=== PATIENT | female | born 1950 | race Caucasian/White ===

== ENCOUNTER → 2017-08-24 | Outpatient (CLI) | payer OTHER ==
[~2017-08-24] MED LIST: ADULT LOW DOSE81 MG PO; ASPIR 8181 MG PO; ASPIR-TRIN325 MG PO; BENICAR PO; CIPRO500 MG PO; COZAAR100 MG PO; EFFIENT10 MG PO; FISH OIL 1,001000 M2 PO; FLUOXETINE HCL40 MG PO; GLUCOPHAGE500 MG PO; IRON325 PO; LIPITOR 20 MG T20 M1 PO; MOBIC15 MG PO; NORCO 5-325 TA1 EACH PO; PENICILLIN V P500 MG PO; PINDOLOL10 MG PO; POTASSIUM GLUCO90 MG; PROZAC20 MG PO; SYNTHROID50 MCG PO; VICODIN 5-5001 EACH PO; ZOCOR PO; ZOLOFT25 MG; ZPAK PO
== END ==
LOC: M.ULTRA 10:10
DX: I77.9 Disorder of arteries and arterioles, unspecified (principal); I10 Essential (primary) hypertension; E11.9 Type 2 diabetes mellitus without complications; E78.5 Hyperlipidemia, unspecified

== ENCOUNTER 2018-02-20 11:07 | Observation (INO) | payer OTHER ==
[~2018-02-20] VITALS: Ht 162.6 cm; Wt 83.9 kg
[~2018-02-20 11:07] MED LIST changes: -FISH OIL 1,001000 M2 PO; -PENICILLIN V P500 MG PO; -ZPAK PO
[2018-02-20 11:12] VITALS: BP 168/67
[2018-02-20] MEDS ORDERED: ZPAK PO (11:17)
[2018-02-20] MEDS ORDERED: PENICILLIN V P500 MG PO (11:17)
[2018-02-20 11:57] LABS: ABSOLUTE BASOPHILS 0.1 thou/uL (0.0-0.2); ABSOLUTE EOSINOPHILS 0.1 thou/uL (0.0-0.7); ABSOLUTE NEUTROPHILS 8.6 thou/uL (1.6-8.1); HEMATOCRIT 40.3 % (37.0-47.0); HEMOGLOBIN 13.2 gm/dL (12.0-15.0); LYMPHOCYTES 23.5 %; MCHC 32.7 g/dL (28.0-37.0); MCV 91.7 fL (80.0-100.0); MONOCYTES 7.7 %; MPV 9.5 fl. (7.2-11.1); NUCLEATED RBCS 0 /100WBC; PLATELET COUNT* 450 thou/uL (150-400); POLYS 66.8 %; RDW-CV 14.2 % (10.5-14.5); WBC 12.8 thou/uL (4.0-11.0)
[2018-02-20 12:04] LABS: URINE BILIRUBIN NEGATIVE (Negative); URINE BLOOD NEGATIVE (Negative); URINE CLARITY CLEAR; URINE COLOR YELLOW; URINE GLUCOSE-RANDOM NEGATIVE (Negative); URINE KETONES TRACE (Negative); URINE LEUKOCYTES-REFLEX NEGATIVE (Negative); URINE NITRITE-REFLEX NEGATIVE (Negative); URINE PROTEIN NEGATIVE (Negative); URINE SPECIFIC GRAVITY 1.025 (1.005-1.030); URINE UROBILINOGEN 0.2 E.U./dl (0.2-1.0)
[2018-02-20 12:06] LABS: ANION GAP 14 mmol/L (7-16); BUN 32 mg/dL (7-18); CALCIUM 8.5 mg/dL (8.5-10.1); CHLORIDE 98 mmol/L (98-107); CO2 21 mmol/L (21-32); CREATININE 1.5 mg/dL (0.6-1.3); GLUCOSE 226 mg/dL (70-99); SODIUM 133 mmol/L (136-145)
[2018-02-20 12:13] LABS: ALBUMIN 3.5 g/dL (3.4-5.0); ALKALINE PHOSPHATASE 77 U/L (46-116); MAGNESIUM 1.9 mg/dL (1.8-2.4); SGOT 18 U/L (15-37); SGPT 23 U/L (30-65); TOTAL BILIRUBIN 0.3 mg/dL (<0.1-1.0); TOTAL PROTEIN 7.6 g/dL (6.4-8.2); TROPONIN-I LEVEL <0.06 ng/mL (<0.06)
--- NOTE | 2018-02-20 13:26 | NUR ---
PT GIVEN REGULAR LUNCH TRAY PER REQUEST
[2018-02-20 14:17] VITALS: BP 136/84
[2018-02-20 14:30] VITALS: BP 187/82
[2018-02-20 16:56] LABS: CHOLESTEROL 174 mg/dL (<200); HDL CHOLESTEROL 54 mg/dL (>40); LDL CHOLESTEROL 83 mg/dL (<100); TC:HDL 3.2 Ratio (Not establshd); TRIGLYCERIDE 185 mg/dL (<150); VLDL 37 mg/dL (<40)
[2018-02-20 16:57] LABS: SERUM ASSESSMENT CLEAR
--- NOTE | 2018-02-20 18:50 | NUR ---
RECEIVED REPORT FROM CHACORTA GREEN IN ER. PT ARRIVED TO TELE FLOOR AROUND 1430, ASSUMED CARE. PT A&O X4. VSS. O2 SAT >90% ON RA. 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 ADMISSION HISTORY, ASSESSMENT AND EDUCATION COMPLETED CHARTED. PT ORIENTED TO ROOM BED AND CALL LIGHT, COMMUNICATES UNDERSTANDING. PT PASSED BEDSIDE SWALLOW. NIH O. DENIES DIZZINESS. DENIES PAIN OR DISCOMFORT. PT STATES SHE FEELS "FINE NOW". PT EATING AND DRINKING WITHOUT ISSUE. FAMILY VISITED THIS EVENING. PT TO HAVE MRI AND MRA TOMORROW. PT CURRENTLY RESTING IN BED WATCHING TV. FALL PRECAUTIONS IN PLACE. CALL LIGHT IS WITHIN REACH. HOURLY ROUNDING PERFORMED. WCTM FOR DURATION OF SHIFT.
[2018-02-20 19:45] VITALS: BP 153/63
[2018-02-20 22:05] LABS: GLYCOHEMOGLOBIN (HGB A1C) 6.8 % (4.8-5.6)
[2018-02-20 23:43] VITALS: BP 124/62
[2018-02-21 03:54] VITALS: BP 159/74
--- NOTE | 2018-02-21 04:23 | NUR ---
END SHIFT: PT RESTED WELL. NO COMPLAINTS. NO PAIN. NIH REMAINS ZERO. NSR ON MONITOR. AWAITING TESTING AND CONSULTS TODAY. ASSESSMENT UNCHANGED. VSS. CALL LIGHT IN REACH. SAFETY PRECAUTIONS IN PLACE. PERFORMED HOURLY ROUNDING. WILL CONT TO MONITOR.
[2018-02-21 05:34] LABS: HEMATOCRIT 39.3 % (37.0-47.0); MCH 30.4 pg (26.0-34.0); MCV 92.1 fL (80.0-100.0); MPV 9.1 fl. (7.2-11.1); RBC 4.27 mil/uL (4.20-5.00); RDW-CV 14.2 % (10.5-14.5); WBC 13.5 thou/uL (4.0-11.0)
[2018-02-21 05:48] LABS: CALCIUM 9.3 mg/dL (8.5-10.1); CREATININE 1.3 mg/dL (0.6-1.3); POTASSIUM 4.5 mmol/L (3.5-5.1)
[2018-02-21 08:00] VITALS: BP 154/67
[2018-02-21 13:41] VITALS: BP 154/67
[2018-02-21] MEDS ORDERED: FISH OIL 1,001000 M2 PO (13:57)
[2018-02-21 14:05] VITALS: BP 154/67
[2018-02-21 14:27] VITALS: BP 154/67
[2018-02-21 14:28] VITALS: BP 154/67
--- NOTE | 2018-02-21 14:55 | 2DMMODE ---
[place] [address] 2 D/M-MODE ECHOCARDIOGRAM Name: MINISTERIO RILEY Room: [address] Amy#: [id number] Admission: 02/20/18 Attend Phys: Yris Saucedo, Discharge: Date of : 46 Date of Service: 02/21/18 1455 Report #: [id number] THIS REPORT FOR: //name// APPROVED REPORT Study performed: 02/21/2018 11:34:20 EXAM: Comprehensive 2D, Doppler, and color-flow Echocardiogram Patient Location: In-Patient Room #: [facility] Status: routine BSA: 1.89 HR: 60 bpm BP: 159/74 mmHg Rhythm: NSR Other Information Study Quality: Good Indications Weakness, dizziness 2D Dimensions IVSd: 10.84 (7-11mm) LVOT Diam: 20.36 (18-24mm) LVDd: 49.64 mm PWd: 10.84 (7-11mm) Ascending Ao: 30.53 (22-36mm) LVDs: 39.45 (25-40mm) Aortic Root: 29.10 mm Volumes Left Atrial Volume (Systole) LA ESV Index: 24.20 mL/m2 Aortic Valve AoV Peak Leif.: 1.56 m/s AO Peak Gr.: 9.68 mmHg LVOT Max P.33 mmHg AO Mean Gr.: 5.91 mmHg LVOT Mean P.25 mmHg LVOT Max V: 0.76 m/s AO V2 VTI: 36.34 cm LVOT Mean V: 0.52 m/s SANDY (VTI): 1.85 cm2 LVOT V1 VTI: 20.69 cm Mitral Valve E/A Ratio: 0.99 MV Decel. Time: 279.71 ms MV E Max Leif.: 1.23 m/[place] [address] 2 D/M-MODE ECHOCARDIOGRAM Name: MINISTERIO RILEY Room: [address] M.R.#: [id number] Admission: 02/20/18 Attend Phys: Yris Saucedo, Discharge: Date of : 46 Date of Service: 02/21/18 1455 Report #: [id number] MV PHT: 81.12 ms MVA (PHT): 2.71 cm2 TDI E/Lateral E': 17.57 E/Medial E': 15.38 Medial E' Leif.: 0.08 m/s Lateral E' Leif.: 0.07 m/s Pulmonary Valve PV Peak Leif.: 0.86 m/s PV Peak Gr.: 2.99 mmHg Left Ventricle The left ventricle is normal size. There is normal LV segmental wall motion. There is normal left ventricular wall thickness. Left ventricular systolic function is normal. The left ventricular ejection fraction is within the normal range. LVEF is 55-60%. The left ventricular diastolic function is normal. Right Ventricle The right ventricle is normal size. The right ventricular systolic function is normal. Atria The left atrium size is normal. The right atrium size is normal. Aortic Valve Mild aortic valve sclerosis. No aortic regurgitation is present. No hemodynamically significant valvular aortic stenosis. Mitral Valve Mild mitral annular calcification. There is no mitral valve regurgitation noted. No evidence of mitral valve stenosis. Tricuspid Valve The tricuspid valve is normal in structure. Trace tricuspid regurgitation. Unable to assess PA pressure. Pulmonic Valve The pulmonary valve is normal in structure. There is no pulmonic valvular regurgitation. Great Vessels The aortic root is normal in size. IVC is normal in size and collapses >50% [place] [address] 2 D/M-MODE ECHOCARDIOGRAM Name: MINISTERIO RILEY Pamela Room: [address]#: [id number] Admission: 02/20/18 Attend Phys: Yris Saucedo, Discharge: Date of : 46 Date of Service: 02/21/18 1455 Report #: [id number] Pericardium There is no pericardial effusion. <Conclusion> The left ventricle is normal size. There is normal left ventricular wall thickness. Left ventricular systolic function is normal. The left ventricular ejection fraction is within the normal range. LVEF is 55-60%. The right ventricle is normal size. The left atrium size is normal. Mild aortic valve sclerosis. No aortic regurgitation is present. No hemodynamically significant valvular aortic stenosis. Mild mitral annular calcification. There is no mitral valve regurgitation noted. No evidence of mitral valve stenosis. The tricuspid valve is normal in structure. IVC is normal in size and collapses >50% with inspiration. There is no pericardial effusion. There is normal LV segmental wall motion. <ELECTRONICALLY SIGNED> By: Balaji Sales MD, FACC 02/21/18 1455 1455 1455 Balaji Sales MD, FACC /INF
--- NOTE | 2018-02-21 14:57 | NUR ---
PIV DISCONTINUED ALONG WITH ORACLE BUSINESS INTELLIGENCE DEVELOPER. DISCHARGE INSTRUCTIONS, EDUCATION MATERIALS AND PRESCRIPTIONS GIVEN TO PATIENT. PT ACCOMPANIED TO PERSONAL VEHICLE BY NURSING STAFF AND ACCOMPANIED BY .
--- NOTE | 2018-02-22 16:49 | EKG ---
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1950 Requested By: Jyoti Fang Order Number: [id number] MD: Balaji Sales Measurements Intervals [place] Rate: 75 P: 54 GA: 154 QRS: -4 QRSD: 86 T: 35 QT: 414 QTc: 463 Interpretive Statements Sinus rhythm Multiple ventricular premature complexes Inferior infarct, old Compared to ECG 04/02/2017 03:24:31 Ventricular premature complex(es) now present Myocardial infarct finding now present Prolonged QT interval no longer present Electronically Signed On 02-22-2018 16:49:32 CDT by Balaji Sales [email or web address] <ELECTRONICALLY SIGNED> By: Balaji Sales MD, FACC 02/22/18 1649 1112 1112 Balaji Sales MD, FACC /EPI
== END 2018-02-21 14:59 | disposition home or self-care (01) ==
LOC: M.ERS 11:07 → M.TBA-ER 13:17 → M.2W 13:17
PROVIDERS: Personal Emergency Response Attendant; ADMIT Internal Medicine
DX: G45.9 Transient cerebral ischemic attack, unspecified (principal); I12.9 Hypertensive chronic kidney disease with stage 1 through stage 4 chronic kidney disease, or unspecified chronic kidney disease; E11.22 Type 2 diabetes mellitus with diabetic chronic kidney disease; E11.65 Type 2 diabetes mellitus with hyperglycemia; N18.9 Chronic kidney disease, unspecified; J06.9 Acute upper respiratory infection, unspecified; J32.9 Chronic sinusitis, unspecified; M81.0 Age-related osteoporosis without current pathological fracture; I25.2 Old myocardial infarction; I25.10 Atherosclerotic heart disease of native coronary artery without angina pectoris; F41.9 Anxiety disorder, unspecified; E78.00 Pure hypercholesterolemia, unspecified; F32.9 Major depressive disorder, single episode, unspecified; E03.9 Hypothyroidism, unspecified; Z98.890 Other specified postprocedural states; Z90.49 Acquired absence of other specified parts of digestive tract

== ENCOUNTER → 2018-02-24 | Outpatient (CLI) | payer OTHER ==
[~2018-02-24] MED LIST changes: +FISH OIL 1,001000 M2 PO; +PENICILLIN V P500 MG PO; +ZPAK PO
--- NOTE | 2018-02-24 18:13 | CARDNUC ---
[place] [address] CARDIAC NUCLEAR IMAGING REPORT Name: MINISTERIO RILEY Room: [facility]#: [id number] Admission: 02/24/18 Attend Phys: Allan Becerril MD Discharge: Date of : 46 Date of Service: 02/24/18 1813 Report #: [id number] THIS REPORT FOR: //name// APPROVED REPORT Study performed: 02/24/2018 08:30:00 Indication: follow up after stent Patient Location: Out-Patient Stress Tech: Selena Klein Stress Nurse: Lizet Chong RN Ht: 5 ft 4 in Wt: 185 lbs BSA: 1.89 m2 BMI: 31.75 Medical History Medical History: cad, pci, hyperlipidemia, hypertension, pvd, diabetes Medications: aspirin, atorvastatin, losartan, metoprolol, clopidogrel Allergies: codeine Cardiac Risk Factors: age, hyperlipidemia, hypertensio, pvd, diabetes Previous Cardiac Procedures: pci Exercise History: Indeterminate Meds Held (24 hrs): metoprolol Resting Data Rest SPECT myocardial perfusion imaging was performed in supine position 30 minutes following the intravenous injection of 11.6 mCi of Tc-99m Sestamibi. Time of rest injection: 08:55 The images were gated to evaluate regional wall motion and calculate left ventricular ejection fraction. Administration Route: IV Administration Site: Right Wrist Pharmacologic Stress Pharmacologic stress test was performed by injecting Regadenoson 0.4 mg IV push over 10-15 seconds immediately followed by the intravenous injection of 35.4 mCi of Tc-99m Sestamibi. Time of stress injection: 10:30 Administration Route: IV Administration Site: Right Wrist Heart Rate at time of stress injection: [place] [address] CARDIAC NUCLEAR IMAGING REPORT Name: MINISTERIO RILEY Room: [facility]#: [id number] Admission: 02/24/18 Attend Phys: Allan Becerril MD Discharge: Date of : 46 Date of Service: 02/24/18 1813 Report #: [id number] Gated Stress SPECT was performed 40 minutes after stress injection. The images were gated to evaluate regional wall motion and calculate left ventricular ejection fraction. Prone imaging was performed. Stress Test Details Stress Test: Pharmacologic stress testing performed using 0.4 mg of regadenoson per 5 mL given IV over 10 seconds. Reason for pharmacologic stress test: physical limitation. 60 mg caffeine given for nausea. HR Max Heart Rate (APMHR): 151 bpm Resting HR: 65 bpm Target HR (85% APMHR): 128 bpm Max HR Achieved: 106 bpm % of APMHR: 70 Recovery HR: 78 bpm BP Resting BP: 145/69 mmHg Recovery BP: 173/97 mmHg ECG Resting ECG: Sinus Rhythm, normal EKG Stress ECG: Sinus Rhythm, normal EKG ST Change: None Arrhythmia: None Recovery ECG: Sinus Rhythm, normal EKG Recovery ST Change: None Recovery Arrhythmia: None Clinical Reason for Termination: Completed protocol Exercise duration: 0 min sec Exercise capacity: 1 METs The patient tolerated Lexiscan infusion without significant symptoms. Nurse Comments pt unsteady gait Stress ECG Conclusion The baseline 12-lead EKG shows sinus rhythm with no significant ST or T wave abnormality. EKGs obtained during and post Lexiscan infusion show sinus rhythm with no significant ST or T wave changes when compared to baseline. There were no stress[place] [address] CARDIAC NUCLEAR IMAGING REPORT Name: MINISTERIO RILEY Room: [facility]#: [id number] Admission: 02/24/18 Attend Phys: Allan Becerril MD Discharge: Date of : 46 Date of Service: 02/24/18 1813 Report #: [id number] Study Quality Study: Good Artifact: No artifact Study Data At rest, the left ventricular ejection fraction was 70%.. Post stress, the left ventricular ejection was 69%.. TID = 0.98. Perfusion Normal left ventricular perfusion. Wall Motion Normal left ventricular wall motion. Nuclear Conclusion ECG Findings: negative for ischemia Clinical Findings: negative for ischemia Nuclear Findings: negative for ischemia Exercise Capacity: not assessed Left Ventricular Function: normal Risk Study: low Myocardial perfusion images show no defect to suggest infarct or ischemia. Left ventricular systolic function appears normal on gated studies. This is a low risk study. <Conclusion> The baseline 12-lead EKG shows sinus rhythm with no significant ST or T wave abnormality. EKGs obtained during and post Lexiscan infusion show sinus rhythm with no significant ST or T wave changes when compared to baseline. There were no stress-induced arrhythmias. <ELECTRONICALLY SIGNED> By: Olegario Villaseñor MD, FACC 02/24/181812 12 12 Olegario Villaseñor MD, FACC /INF
== END ==
LOC: M.NUC 09-01 08:57
DX: I25.10 Atherosclerotic heart disease of native coronary artery without angina pectoris (principal); Z95.5 Presence of coronary angioplasty implant and graft

== ENCOUNTER 2018-10-12 09:28 | Emergency (ER) | payer OTHER ==
[~2018-10-12] VITALS: Ht 160 cm; Wt 84.4 kg
[2018-10-12] MEDS ORDERED: NORCO 5-325 TA1 EAC1 PO (12:10)
[2018-10-12 12:19] VITALS: BP 165/66
== END 2018-10-12 12:20 | disposition home or self-care (01) ==
LOC: M.ERS 09:28
DX: S52.514A Nondisplaced fracture of right radial styloid process, initial encounter for closed fracture (principal); S00.531A Contusion of lip, initial encounter; S80.211A Abrasion, right knee, initial encounter; S80.212A Abrasion, left knee, initial encounter; M81.0 Age-related osteoporosis without current pathological fracture; F32.9 Major depressive disorder, single episode, unspecified; F41.9 Anxiety disorder, unspecified; E78.5 Hyperlipidemia, unspecified; E03.9 Hypothyroidism, unspecified; I10 Essential (primary) hypertension; E11.9 Type 2 diabetes mellitus without complications; Z90.711 Acquired absence of uterus with remaining cervical stump; Z88.5 Allergy status to narcotic agent; Z88.0 Allergy status to penicillin; W18.39XA Other fall on same level, initial encounter; Y92.007 Garden or yard of unspecified non-institutional (private) residence as the place of occurrence of the external cause; Y99.0 Civilian activity done for income or pay; Y99.8 Other external cause status